=== PATIENT | male | born 1990 | race Caucasian/White ===

== ENCOUNTER 2021-08-19 18:05 | Emergency (ER) | payer MEDICAID, SELFPAY ==
[2021-08-19 18:06] VITALS: BP 183/109; PULSE 116; RESP 20; TEMP 36.8; O2SAT 97; BMI 33.1
--- NOTE | 2021-08-19 18:45 | EDS_ITS ---
HPI <Dr. Stuart Weber MD - Last Filed: 08/19/21 20:10> HPI - Psych History of Present Illness Chief Complaint: Suicidal Detail of Chief Complaint: Concern patient will cause self-harm Informant: patient Onset/Context/Timing Onset: Days Context: Sudden Onset Timing: Intermittent Current Severity: Moderate Relieved by: Nothing Associated Symptoms Associated Symptoms - Psych: Positive for Depressed, Decreased Concentration, Suicidal Thoughts, Flight of Ideas, Increased activity and Pressured Speech; Negative for Visual Hallucinations and Auditory Hallucinations Specific plan (suicidal thought): I just do it Narrative Narrative: Patient is a 30-year-old male with history of bipolar affective disorder, drug dependency, tobacco and alcohol use who presents because of concern for self-harm. He was last hospitalized 1 year ago. He states he does not have a plan he just cuts himself. Patient has large well-healed scars from prior self-inflicted wounds. He does have a gilda forehead midline near the hairline. This probably occurred 24 to 48 hours ago. He denies headache, visual, ocular auditory symptoms. He denies change in voice. He denies cardiac respiratory symptoms. He denies GI symptoms. He is not on any medication because he was not insured. He states when he was discharged he was unable to fill any of his prescriptions. He states he has history of bipolar affective disorder, schizoaffective disorder and drug dependency. He is engaged. Prior similar symptoms: Yes Recent Illness/Hospitalization: No PFSH <Dr. Stuart Weber MD - Last Filed: 08/19/21 20:10> PFSH Medical History (Updated 08/19/21 @ 20:[address] Stuart Weber MD) Bipolar affective disorder Personality disorder PTSD (post-traumatic stress disorder) Schizoaffective disorder Allergy/AdvReac Type Severity Reaction Status Date / Time No Known Allergies Allergy Verified 08/19/21 18:06 Social History (Updated 08/19/21 @ 18:[address] Stuart Weber MD) household members: significant other Smoking Status: Current every day smoker tobacco type: cigarettes alcohol intake: current alcohol intake frequency: other substance use type: methamphetamine ROS <Dr. Stuart Weber MD - Last Filed: 08/19/21 20:10> ROS ED Constitutional Constitutional ED: Denies chills, fever(s), subjective, sweats or weight loss Eyes Eyes: Denies blurry vision, change in vision or diplopia ENT ENT ED: Denies ear pain, rhinorrhea or sore throat Cardiovascular Cardiovascular: Denies chest pain, orthopnea or palpitations Respiratory/Chest Respiratory/Chest: Denies cough, dyspnea, dyspnea on exertion or orthopnea Gastrointestinal Gastrointestinal: Denies abdominal pain, diarrhea, nausea or vomiting Genitourinary Genitourinary ED: Denies dysuria, hematuria or urinary frequency Musculoskeletal Musculoskeletal: Denies arthralgias, myalgias or neck pain Integumentary Denies Abrasions or rash Neurologic Neurologic: Denies headache(s) or weakness Psychiatric Psychiatric: Reports anxiety, depression and suicidal thoughts Endocrine Endocrinology: Denies polydipsia, polyphagia or polyuria Hematologic/Lymphatic Hematologic/Lymphatic: Denies easy bleeding or easy bruising EXAM <Dr. Stuart Weber MD - Last Filed: 08/19/21 20:10> Physical Exam Const Vital Signs: 08/19/21 18:06 08/19/21 19:05 08/19/21 21:05 Temperature 98.2 F Temperature Source Temporal Pulse Rate 116 H 100 Respiratory Rate 20 H 24 H 20 H Blood Pressure 183/109 H Blood Pressure Mean 133 Pulse Ox 97 Oxygen Delivery Method Room Air 08/20/21 00:16 Temperature Temperature Source Pulse Rate 84 Respiratory Rate 16 Blood Pressure 148/93 H Blood Pressure Mean 111 Pulse Ox 99 Oxygen Delivery Method Room Air Positive well nourished and well developed General Appearance ED: well developed, irritable and other Patient is hypomanic and agitated. ; Negative for pallor HEENT Reports moist mucous membranes normocephalic and atraumatic Eyes PERRL and EOMs intact bilaterally General Eye ED: Negative for pale conjunctiva or scleral icterus Neck no lymphadenopathy, supple and no JVD Resp normal respiratory effort and clear to auscultation bilaterally Cardio S1 normal heart sound, S2 normal heart sound and no murmurs Rate: tachycardic Rhythm: regular rhythm GI non-tender, non-distended and no masses Auscultation: normoactive bowel sounds Palpation: soft Back/Spine no CVA tenderness Cervical Spine: Negative for cervical spine tenderness Thoracic Spine / Upper Back: Negative for thoracic spinal tenderness Lumbar Spine / Lower Back: Negative for lumbar spinal tenderness Extremity Negative for normal to inspection Extremity Narrative: Well healed prior wounds upper and lower extremity General Extremety ED: Negative for edema or tenderness General Extremity: Negative for edema Neuro oriented x3 and CN's II-XII intact bilaterally Caty Coma Scale: document GCS findings Spontaneous Obeys Commands Oriented 15 Sensorium / Orientation: alert Psych denies hallucinations and denies homicidal ideation; Negative for mental status grossly normal, thought process normal or denies suicidal ideation Appearance: grossly normal Attitude: No calm, engaged, agitated and No hostile Activity / Motor Behavior: psychomotor agitation, hyperactive, restless and avoids eye contact Speech: rapid, pressured and No slurred Mood & Affect: irritable and labile affect; Negative for tearful or fearful Thought Process: racing thoughts Thought Content: suicidality and phobia(s) Attention / Concentration: attention grossly impaired Memory / Cognition: memory grossly intact and memory grossly impaired Insight: fair and limited Judgement: limited Skin General Skin Exam: Negative for jaundice or pallor Lesions: no lesions Rashes: no rashes <Timi Mullins MD - Last Filed: 08/20/21 00:57> Physical Exam Const Vital Signs: 08/19/21 18:06 08/19/21 19:05 08/19/21 21:05 Temperature 98.2 F Temperature Source Temporal Pulse Rate 116 H 100 Respiratory Rate 20 H 24 H 20 H Blood Pressure 183/109 H Blood Pressure Mean 133 Pulse Ox 97 Oxygen Delivery Method Room Air 08/20/21 00:16 Temperature Temperature Source Pulse Rate 84 Respiratory Rate 16 Blood Pressure 148/93 H Blood Pressure Mean 111 Pulse Ox 99 Oxygen Delivery Method Room Air MDM <Dr. Stuart Weber MD - Last Filed: 08/19/21 20:10> [facility] Narrative Medical decision making narrative: Patient will require inpatient therapy and medication. Since he is tachycardic and admits to methamphetamine use we will treat with benzodiazepine. This will help his agitation Lab Data Attestation: I reviewed the patient's lab results. Labs: Laboratory Results - last 24 hr 08/19/21 08/19/21 08/19/21 18:50 19:00 19:00 WBC 10.5 RBC 5.32 Hgb 16.2 Hct 44.3 MCV 83.3 MCH 30.5 MCHC 36.6 H RDW Std Deviation 36.8 RDW Coeff of Amilcar 12.1 Plt Count 268 MPV 9.7 Immature Gran % (Auto) 0.300 Neut % (Auto) 68.4 Lymph % (Auto) 21.6 [place] % (Auto) 6.2 Eos % (Auto) 2.7 Baso % (Auto) 0.8 Absolute Neuts (auto) 7.2 Absolute Lymphs (auto) 2.28 Nucleated RBC % 0 Sodium 136 Potassium 3.4 L Chloride 105 Carbon Dioxide 23.0 Anion Gap 8 BUN 22 H Creatinine 1.13 Estim Creat Clear Calc 105.87 Est GFR (MDRD) Af Amer 98 Est GFR (MDRD) Non-Af 81 BUN/Creatinine Ratio 19.5 Glucose 141 H Calcium 9.2 Urine Opiates Screen Urine Methadone Screen Ur Barbiturates Screen Ur Phencyclidine Scrn Ur Amphetamines Screen U Methamphetamin-MDMA U Benzodiazepines Scrn Urine Cocaine Screen U Cannabinoids Screen Ur Drug Screen Comment Ethyl Alcohol 3.0 08/19/21 19:20 WBC RBC Hgb Hct MCV MCH MCHC RDW Std Deviation RDW Coeff of Amilcar Plt Count MPV Immature Gran % (Auto) Neut % (Auto) Lymph % (Auto) [place] % (Auto) Eos % (Auto) Baso % (Auto) Absolute Neuts (auto) Absolute Lymphs (auto) Nucleated RBC % Sodium Potassium Chloride Carbon Dioxide Anion Gap BUN Creatinine Estim Creat Clear Calc Est GFR (MDRD) Af Amer Est GFR (MDRD) Non-Af BUN/Creatinine Ratio Glucose Calcium Urine Opiates Screen NEGATIVE Urine Methadone Screen NEGATIVE Ur Barbiturates Screen NEGATIVE Ur Phencyclidine Scrn NEGATIVE Ur Amphetamines Screen POSITIVE H U Methamphetamin-MDMA POSITIVE H U Benzodiazepines Scrn NEGATIVE Urine Cocaine Screen NEGATIVE U Cannabinoids Screen NEGATIVE Ur Drug Screen Comment Ethyl Alcohol <Timi Mullins MD - Last Filed: 08/20/21 00:57> [facility] MDM Narrative Medical decision making narrative: Dr. Mullins: Patient endorsed to me by Dr. Weber to make final disposition on this placement who requires psychiatric evaluation and treatment. He was informed that he has been accepted at [facility] for psychiatry. He did require an additional dose of benzodiazepine in the form of lorazepam 1 mg orally prior to his transfer. Disposition is transferred in stable condition. Lab Data Labs: Laboratory Results - last 24 hr 08/19/21 08/19/21 08/19/21 18:50 19:00 19:00 WBC 10.5 RBC 5.32 Hgb 16.2 Hct 44.3 MCV 83.3 MCH 30.5 MCHC 36.6 H RDW Std Deviation 36.8 RDW Coeff of Amilcar 12.1 Plt Count 268 MPV 9.7 Immature Gran % (Auto) 0.300 Neut % (Auto) 68.4 Lymph % (Auto) 21.6 [place] % (Auto) 6.2 Eos % (Auto) 2.7 Baso % (Auto) 0.8 Absolute Neuts (auto) 7.2 Absolute Lymphs (auto) 2.28 Nucleated RBC % 0 Sodium 136 Potassium 3.4 L Chloride 105 Carbon Dioxide 23.0 Anion Gap 8 BUN 22 H Creatinine 1.13 Estim Creat Clear Calc 105.87 Est GFR (MDRD) Af Amer 98 Est GFR (MDRD) Non-Af 81 BUN/Creatinine Ratio 19.5 Glucose 141 H Calcium 9.2 Urine Opiates Screen Urine Methadone Screen Ur Barbiturates Screen Ur Phencyclidine Scrn Ur Amphetamines Screen U Methamphetamin-MDMA U Benzodiazepines Scrn Urine Cocaine Screen U Cannabinoids Screen Ur Drug Screen Comment Ethyl Alcohol 3.0 08/19/21 19:20 WBC RBC Hgb Hct MCV MCH MCHC RDW Std Deviation RDW Coeff of Amilcar Plt Count MPV Immature Gran % (Auto) Neut % (Auto) Lymph % (Auto) [place] % (Auto) Eos % (Auto) Baso % (Auto) Absolute Neuts (auto) Absolute Lymphs (auto) Nucleated RBC % Sodium Potassium Chloride Carbon Dioxide Anion Gap BUN Creatinine Estim Creat Clear Calc Est GFR (MDRD) Af Amer Est GFR (MDRD) Non-Af BUN/Creatinine Ratio Glucose Calcium Urine Opiates Screen NEGATIVE Urine Methadone Screen NEGATIVE Ur Barbiturates Screen NEGATIVE Ur Phencyclidine Scrn NEGATIVE Ur Amphetamines Screen POSITIVE H U Methamphetamin-MDMA POSITIVE H U Benzodiazepines Scrn NEGATIVE Urine Cocaine Screen NEGATIVE U Cannabinoids Screen NEGATIVE Ur Drug Screen Comment Ethyl Alcohol Discharge Plan Triage Chief Complaint: Suicidal ED Provider: Stuart Weber Dx/Rx/DC Orders Clinical Impression: Bipolar affective disorder, Schizoaffective disorder, Methamphetamine abuse, Tobacco use Primary Care Provider: Care Physician,No Primary Referrals: Care Physician,No Primary [Primary Care Provider] - Disposition Disposition: Psychiatric Hospital or Unit Discharge Location: [facility]
[2021-08-19 19:05] VITALS: PULSE 100; RESP 24
[2021-08-19 19:11] LABS: Absolute Lymphocyte Count 2.28 X10^3/uL (0.83-4.51); Absolute Neutrophil Count 7.2 X10^3/uL (2.0-7.7); Basophil# 0.08 X10^3/uL; Basophil% 0.8 % (0-1); Eosinophil# 0.28 X10^3/uL; Eosinophils% 2.7 % (0-5); Hematocrit 44.3 % (40-54); Hemoglobin 16.2 g/dL (13.0-16.5); Lymphocyte # 2.28 X10^3/ul (0.83-4.51); Lymphocyte % 21.6 % (19-41); Mean Corp Hgb Conc 36.6 g/dL (32-36); Mean Corpuscular Hgb 30.5 pg (27.0-32.0); Mean Corpuscular Volume 83.3 fL (80-94); Mean Platelet Vol. 9.7 fl (6.2-12.0); Monocyte# 0.65 X10^3/uL; Monocyte% 6.2 % (0-10); NRBC Flagged by Analyzer 0 % (0-5); Neutrophil # 7.22 X10^3/uL (2.7-7.7); Neutrophil % 68.4 % (47-70); Platelet Count 268 K/mm3 (150-450); RBC Distribution Width CV 12.1 % (11.6-14.6); RBC Distribution Width SD 36.8 fl (35.1-43.9); Red Blood Count 5.32 M/mm3 (4.6-6.2); White Blood Count 10.5 K/mm3 (4.4-11.0)
[2021-08-19] MEDS: diazePAM 5 MG Tablet PO (19:17)
--- NOTE | 2021-08-19 19:24 | ED.RN ---
This patient recently moved from [place] to [place] in April of previous year. He states he has previous attempts in past noting cutting and overdose as methods. Denies plan today however states I would just do it. States uses methamphetamine with most recent use this AM.
[2021-08-19 19:33] LABS: Anion Gap 8 (5-15); BUN 22 mg/dL (7-18); BUN/Creat Ratio 19.5 RATIO (10-20); Calcium,Total 9.2 mg/dL (8.5-10.1); Chloride 105 mmol/L (98-107); Creatinine, Serum 1.13 mg/dL (0.70-1.30); EST Glomerular Filtration Rate 81 mL/min (>60); Est Glom Filt Rate - Afr Amer 98 mL/min (>60); Estimated Creatinine Clearance 105.87 ml/min; Glucose 141 mg/dL (74-106); Potassium 3.4 mmol/L (3.5-5.1); Sodium Level 136 mmol/L (136-145)
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
[2021-08-19 20:13] LABS: Amphetamine Urine VISTA POSITIVE (<1000 ng/mL); Barbiturate Urine VISTA NEGATIVE (< 200 ng/mL); Benzodiazepine Urine VISTA NEGATIVE (< 200 ng/mL); Cocaine Urine VISTA NEGATIVE (< 300 ng/mL); Ecstacy Urine VISTA POSITIVE (< 500 ng/mL); Methadone Urine VISTA NEGATIVE (< 300 ng/mL); PCP Urine VISTA NEGATIVE (< 25 ng/mL); THC Urine VISTA NEGATIVE (< 50 ng/mL); Vista UDS pH Range 5
--- NOTE | 2021-08-19 20:52 | CM.ED ---
DANIELA Note DANIELA faxed referral to [facility], [facility] and [facility]. DANIELA spoke to Michael at [facility] and he advised that due to patient's relationship with current patient at [facility] to refer him to another psychiatric hospital. Juanis LANDIS
[2021-08-19 21:05] VITALS: RESP 20
--- NOTE | 2021-08-19 21:52 | ED.RN ---
This patient ripped off his ID bracelet and was threatening to leave facility, requesting to speak with the physician. He states he does not want to go to [place] due to people trying to kill me there and continues to state I'm not going to kill myself. Deescalation was successful and patient remained in his room with sitter at bedside.
--- NOTE | 2021-08-19 22:34 | CM.ED ---
DANIELA received call from Emilie at [facility]. Patient was accepted by Dr. Bryant. He will go to [facility] unit. Patient will need to go after 2am. SW updated patient. He said that he is not going to [place] and you can't force me. Explained the pink slip. Patient said I am not suicidal.. you can't keep me. Again, SW explained that patient has been pink slipped. Patient said that he wanted to speak to the MD. ship washer and MD notified. RN notified. DANIELA faxed pink slip to [facility]. DANIELA spoke with Emilie at [facility]. Advised that patient may need to be medicated. Emilie said that she just needs to be updated but he can't be sent till after 4 hours from being medicated. Emilie's phone [phone]. Plan: [facility]
--- NOTE | 2021-08-19 23:41 | CM.ED ---
SW received call from [facility] at [facility]. They declined patient. Juanis LANDIS
[2021-08-20] VITALS (7 sets, daily range): BP systolic 132–148; BP diastolic 73–93; PULSE 78–84; RESP 14–16; O2SAT 99–100
[2021-08-20] MEDS: LORazepam 1 MG Tablet PO (01:06)
== END 2021-08-20 06:51 ==
PROVIDERS: Emergency Provider Emergency Medicine; Visit Provider Emergency Medicine
DX: F25.0 Schizoaffective disorder, bipolar type (principal); F15.10 Other stimulant abuse, uncomplicated; F60.9 Personality disorder, unspecified; F43.10 Post-traumatic stress disorder, unspecified; R45.851 Suicidal ideations; F17.210 Nicotine dependence, cigarettes, uncomplicated; Z91.52 Personal history of nonsuicidal self-harm
CPT/HCPCS: 80048; 80307; 82077; 85025; 87426; 99285

== ENCOUNTER 2021-10-05 12:42 | Emergency (ER) | payer MEDICAID, SELFPAY ==
[2021-10-05 12:45] VITALS: BP 133/105; PULSE 135; RESP 22; TEMP 36.7; O2SAT 97; BMI 33.0
--- NOTE | 2021-10-05 13:03 | EX.ED.UPPERE ---
HPI History of Present Illness HPI Narrative: Patient presents with a laceration to his left forearm that occurred today. Patient states he tripped and fell and landed on his left forearm. Patient states he thinks he landed on something sharp which cut his forearm. Patient states there was blood squirting from the wound initially. EMS applied a tourniquet. Patient denies any paresthesias or weakness. Patient states his last tetanus was 5 to 6 years ago. Patient denies any head injury or loss of consciousness. Patient denies any other injuries. Chief Complaint: Laceration Onset/Context/Timing Onset: Today Context: Sudden Onset Timing: Continuous Quality of Pain: Stabbing Worsened by: Movement Relieved by: Nothing Associated Symptoms Associated Symptoms: Negative for Parasthesia and Weakness PFSH PFS Medical History Bipolar affective disorder Personality disorder PTSD (post-traumatic stress disorder) Schizoaffective disorder Allergy/AdvReac Type Severity Reaction Status Date / Time No Known Allergies Allergy Verified 08/19/21 18:06 Social History household members: significant other Smoking Status: Current every day smoker tobacco type: cigarettes alcohol intake: current alcohol intake frequency: other substance use type: methamphetamine ROS ROS ED Constitutional Constitutional ED: Denies chills or fever(s) Eyes Eyes: Denies blurry vision or change in vision ENT ENT ED: Denies rhinorrhea or sore throat Cardiovascular Cardiovascular: Denies chest pain or palpitations Respiratory/Chest Respiratory/Chest: Denies cough or dyspnea Gastrointestinal Gastrointestinal: Denies nausea or vomiting Genitourinary Genitourinary ED: Denies dysuria or hematuria Musculoskeletal Musculoskeletal: Denies back pain or neck pain Integumentary Denies abscess or rash Neurologic Neurologic: Denies headache(s) or weakness Allergic/Immunologic Allergic/Immunologic ED: Denies mouth swelling or urticaria EXAM Physical Exam Const Vital Signs: 10/05/21 12:45 Temperature 98.0 F Temperature Source Temporal Pulse Rate 135 H Respiratory Rate 22 H Blood Pressure 133/105 H Blood Pressure Mean 114 Pulse Ox 97 Oxygen Delivery Method Room Air Positive well nourished and well developed General Appearance ED: well developed and NAD Neck full ROM and supple Extremity Extremity Narrative: There is a 4.5 cm full-thickness linear laceration over the volar and ulnar aspects of the left forearm. There is excessive bleeding noted. There is a good radial pulse when the tourniquet is down. Sensation was intact to light touch in all digits. Capillary refill was less than 2 seconds in all digits. There are no foreign bodies noted. Neuro oriented x3 Sensorium / Orientation: alert Psych mental status grossly normal MDM MDM MDM Narrative Medical decision making narrative: The tourniquet that EMS applied was let down and the patient started having excessive bleeding. A blood pressure cuff was applied to the left upper arm and inflated. Bleeding stopped. The laceration was anesthetized with 1% lidocaine with epinephrine. The blood pressure cuff was slowly released. Initially, there was no pulsatile bleeding. However, there was pulsatile bleeding after a few seconds. The wound was explored. The pulsatile bleeding appears to be coming from deeper in the forearm, likely from the ulnar artery. Since there is no vascular surgeon here today, patient will be transferred to [facility]. Case was discussed with Dr. Mullins. Patient will be a surgical team and transferred there. Patient understands and was agreeable with the plan. All questions were answered. Critical Care Time Critical Care Time: Yes Critical care time (excluding procedures): 30-74 minutes (31), Including time spent:, Discussing w/Patient &/or Family/Director Client, Discussing w/Consultants, Arranging Admission or Transfer and Performing Direct Patient Care at Bedside Discharge Plan Triage Chief Complaint: Laceration ED Provider: Rich Gannon Dx/Rx/DC Orders Clinical Impression: Laceration of ulnar artery at left forearm level, Tobacco use Primary Care Provider: Care Physician,No Primary Referrals: Care Physician,No Primary [Primary Care Provider] - Disposition Disposition: Acute Care Hospital Discharge Location: [facility] Date/Time: 10/05/21 14:24
[2021-10-05] MEDS: Morphine 4 MG/ML Syringe IM (13:55)
[2021-10-05 14:12] VITALS: BP 173/82; PULSE 99; RESP 18; TEMP 37.2; O2SAT 98
== END 2021-10-05 14:24 | disposition short-term general hospital (02) ==
PROVIDERS: Emergency Provider Emergency Medicine; Visit Provider Emergency Medicine
DX: S55.012A Laceration of ulnar artery at forearm level, left arm, initial encounter (principal); W01.10XA Fall on same level from slipping, tripping and stumbling with subsequent striking against unspecified object, initial encounter; W26.8XXA Contact with other sharp object(s), not elsewhere classified, initial encounter; F17.210 Nicotine dependence, cigarettes, uncomplicated
CPT/HCPCS: 96372; 99285

== ENCOUNTER 2022-02-16 14:51 | Emergency (ER) | payer MEDICAID, SELFPAY ==
[2022-02-16 14:51] VITALS: BP 141/109; PULSE 92; RESP 16; TEMP 36.6; O2SAT 98; BMI 29.8
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
[2022-02-16] MEDS: Naproxen 375 MG Tablet 500 MG PO (16:28)
== END 2022-02-16 16:29 | disposition home or self-care (01) ==
PROVIDERS: Emergency Provider Emergency Medicine; Visit Provider Emergency Medicine
DX: M54.50 Low back pain, unspecified (principal); F17.210 Nicotine dependence, cigarettes, uncomplicated
CPT/HCPCS: 99283

== ENCOUNTER 2024-08-31 11:55 | Emergency (ER) | payer MEDICAID, SELFPAY ==
[2024-08-31 11:57] VITALS: BP 150/85; PULSE 84; RESP 14; TEMP 36.6; O2SAT 98; BMI 37.5
--- NOTE | 2024-08-31 12:04 | RAD_ITS ---
PROCEDURE: HAND MIN 3 VIEWS REASON FOR EXAM: Pain following injury. Known radiopaque foreign bodies in the hand. TECHNIQUE: 3 view(s) of the right hand COMPARISON: None. FINDINGS: No visible fracture. No suspicious bone lesion. Normal alignment. There are 2, adjacent 2.2 mm radiopacities overlying the dorsal aspect of the base of the 3rd metacarpal. Soft tissue swelling. RAD/Hand Min 3 Views IMPRESSION: Soft tissue swelling. No acute abnormality is seen. There are 2, radiopacities along the dorsal aspect of the hand overlying the ba se of the 3rd metacarpal. Reading Location: [facility]
--- NOTE | 2024-08-31 12:57 | EX.ED.UPPERE ---
HPI History of Present Illness Chief Complaint: Upper Extremity Injury Detail of Chief Complaint: Injury to PIP joint of the right index, long, ring and little finger Informant: patient Occured/Mechanism Mechanism/Context: Yes blunt trauma Onset/Context/Timing Onset: Yesterday Context: Sudden Onset Timing: Continuous Quality of Pain: Dull and Throbbing Location: Right index through little finger Current Severity: Mild Maximum Severity: Moderate Worsened by: Attempt to use Relieved by: Nothing Associated Symptoms Associated Symptoms: Negative for Parasthesia or Weakness Narrative Narrative: Patient is a 33-year-old male. He has history of drug addiction, schizoaffective disorder as well as bipolar affective disorder. He was working on his car. He went to tighten a bolt. His hand slipped from the ranch. His knuckles hit the ground. He sustained abrasions to the PIP joint of the index, long, ring and little finger. He reports increased pain and swelling since last evening. He denies paresthesia, anesthesia motors. He has known foreign body dorsum of the right hand. Prior similar symptoms: Yes Recent Illness/Hospitalization: No PFSH PFS Medical History Back injury PTSD (post-traumatic stress disorder) Personality disorder Schizoaffective disorder Bipolar affective disorder Home Medications ?Medication ?Instructions ?Recorded ?Last Taken ?Type NK 08/31/24 Unknown History Allergy/AdvReac Type Severity Reaction Status Date / Time No Known Allergies Allergy Verified 08/31/24 11:56 Social History household members: significant other Smoking Status: Current every day smoker tobacco type: cigarettes alcohol intake: current alcohol intake frequency: other substance use type: methamphetamine ROS ROS ED Integumentary Reports Abrasions Neurologic Neurologic: Denies paresthesias or weakness Psychiatric Psychiatric: Denies anxiety Hematologic/Lymphatic Hematologic/Lymphatic: Denies easy bleeding or easy bruising EXAM Physical Exam Const Vital Signs: 08/31/24 11:57 Temperature 98 F Temperature Source Temporal Pulse Rate 84 Respiratory Rate 14 Blood Pressure 150/85 H Blood Pressure Mean 106 Pulse Ox 98 Oxygen Delivery Method Room Air Positive well nourished and well developed Constitutional Narrative: BMI 37 General Appearance ED: well developed HEENT normocephalic and atraumatic Eyes PERRL and EOMs intact bilaterally Neck full ROM and supple Resp normal respiratory effort and clear to auscultation bilaterally Cardio regular rate, regular rhythm, S1 normal heart sound, S2 normal heart sound and no murmurs Extremity Negative for normal to inspection or full ROM Extremity Narrative: Abrasions over the PIP joint of the index, long, ring and little finger. He also has some facial abrasions over the MCP joint of the index and long finger. The extensor NSI, extensor commonness and extensor minimized tendon are functionally intact. The flexor digitorum superficialis and flexor digitorum profundus is intact for the index, long, ring and little finger. Capillary refill is normal. Sensation is normal. There is no subungual hematoma noted. General Extremety ED: Yes edema General Extremity: edema Neuro oriented x3, no focal motor deficits and no sensory deficits noted Sensorium / Orientation: alert Skin Trauma: no lacerations or abrasions MDM MDM MDM Narrative Medical decision making narrative: Will obtain x-ray to evaluate for fracture and foreign body. Radiography Chest X-Ray - ED: Read by ED Physician (Three-view x-ray of the hand reveals 2 foreign bodies noted dorsum of the hand. There is no fracture, subluxation dislocation noted.) Discharge Plan Triage Chief Complaint: Upper Extremity Injury ED Provider: Stuart Weber Dx/Rx/DC Orders Clinical Impression: Contusion of multiple sites of right hand and fingers, Schizoaffective disorder, Tobacco use, Abrasion of multiple sites of right hand and finger Instructions: ED Abrasion, ED Hand Contusion Prescriptions: No Action NK Primary Care Provider: Care Physician,No Primary Referrals: Care Physician,No Primary [Primary Care Provider] - Activity Restrictions/Additional Instructions: 1. Follow-up with your primary care physician. The name of your doctor or providers located on your insurance card issued to you by [facility]. Print Language: German Disposition Disposition: Home, Self Care
--- NOTE | 2024-08-31 13:02 | ED.RN ---
P0T GIVEN A BASIN WITH SALINE AND GUNNER HEX TO WASH HIS R HAND WHICH HE HAS NOT DONE SINCE THE INJURY. PT IS TICKLING AND POKING S.O. IN THE CURTAINED AREA WITH LING HANDS SO HE IS HAVING USE OF HIS R HAND
[2024-08-31 13:34] VITALS: BP 127/88; PULSE 81; RESP 16; TEMP 36.4; O2SAT 96
== END 2024-08-31 13:35 | disposition home or self-care (01) ==
PROVIDERS: Emergency Provider Emergency Medicine; Visit Provider Emergency Medicine
DX: S60.221A Contusion of right hand, initial encounter (principal); F25.9 Schizoaffective disorder, unspecified; F31.9 Bipolar disorder, unspecified; S60.511A Abrasion of right hand, initial encounter; F17.210 Nicotine dependence, cigarettes, uncomplicated; X58.XXXA Exposure to other specified factors, initial encounter
CPT/HCPCS: 73130; 99282